=== PATIENT | male | born 1975 | race Caucasian/White ===

== ENCOUNTER 2021-07-05 11:17 | Emergency (ER) | payer OTHER ==
[2021-07-05 11:50] LABS: BASOPHIL 0.3 % (0-2); EOSINOPHIL 1.3 % (0-5); HCT 42.2 % (42.0-52.0); HGB 14.2 g/dl (13.2-18.0); LYMPHOCYTE 25.8 % (15-48); MCH 31.1 pg (25.0-31.0); MCHC 33.6 g/dL (32.0-36.0); MCV 92.5 fL (78.0-100.0); MONOCYTE 7.6 % (0-12); MPV 11.8 fL (6.0-9.5); NEUTROPHIL 64.8 % (41-80); NRBC 0; PLT 225 K/uL (150-400); RBC 4.56 M/uL (4.70-6.00); WBC 5.9 K/uL (4.0-10.5)
[2021-07-05 11:52] LABS: BILIRUBIN NEGATIVE (NEGATIVE); BLOOD NEGATIVE Ery/uL (NEGATIVE); CLARITY CLEAR (CLEAR); COLOR YELLOW (YELLOW); GLUCOSE (U) NORMAL (NORMAL); LEUKOCYTES NEGATIVE Leu/uL (NEGATIVE); NITRITE NEGATIVE (NEGATIVE); PROTEIN NEGATIVE (NEGATIVE); SPECIFIC GRAVITY 1.025 (1.001-1.030); UROBILINOGEN 0.2 mg/dL (0.2-1.0); pH 6.5 (5.0-9.0)
[2021-07-05 12:47] LABS: ALBUMIN 4.5 g/dL (3.4-5.0); ALKALINE PHOSHATASE 44 U/L (46-116); ALT 11 U/L (16-63); AST 13 U/L (15-37); BILIRUBIN - TOTAL 0.4 mg/dL (0.2-1.0); BUN 24 mg/dL (7-18); BUN/CREAT RATIO (CALC) 23.1 RATIO; CHLORIDE 103 mmol/L (98-107); CO2 (BICARBONATE) 30 mmol/L (21-32); CREATININE 1.04 mg/dL (0.67-1.17); GLOBULIN (CALCULATION) 3.2 g/dL; GLUCOSE 83 mg/dL (74-106); LDH 157 U/L (85-227); LIPASE 958 U/L (73-393); MAGNESIUM 2.2 mg/dL (1.8-2.4); POTASSIUM 3.9 mmol/L (3.5-5.1); TOTAL PROTEIN 7.7 g/dL (6.4-8.2)
[2021-07-05 12:49] LABS: C-REACTIVE PROTEIN <0.20 mg/dL (<=0.90)
[2021-07-05] MEDS ORDERED: ONDANSETRON ODT4 MG PO (13:57)
[2021-07-05] MEDS ORDERED: LOPERAMIDE2 MG PO (13:57)
== END 2021-07-05 14:21 | disposition home or self-care (01) ==
LOC: FER 11:17
PROVIDERS: Emergency Medicine
DX: K52.9 Noninfective gastroenteritis and colitis, unspecified (principal); R55 Syncope and collapse; R74.8 Abnormal levels of other serum enzymes; Z20.822 Contact with and (suspected) exposure to COVID-19
CPT/HCPCS: 36415; 80053; 81003; 83615; 83690; 83735; 84145; 84439; 84443; 84484; 85025; 86140; 93005; J2405; J7120; U0002